=== PATIENT | female | born 1995 | race American Indian/Alaskan Native ===

== ENCOUNTER 2019-12-25 22:38 | Emergency (ER) | payer SELFPAY ==
--- NOTE | 2019-12-25 23:09 | Emergency Department Report ---
ED Abdominal Pain HPI - General Chief Complaint: Abdominal Pain Stated Complaint: LOWER RIGHT ABDOMINAL CRAMPS Time Seen by Provider: 12/25/19 23:03 Source: patient, EMS Mode of arrival: Stretcher Limitations: No Limitations - History of Present Illness Initial Comments: Patient is a 24-year-old female that presents emergency room with complaints of right lower quadrant pain x2 to 3 hours. Patient states she has a history of ovarian cyst. Patient states pain is strong. Patient states the pain is a 10 out of 10. Patient states the pain is worse with movement and palpation. Patient dates the pain is better with rest. Patient states the pain is worse than her last ovarian cyst. Patient denies nausea vomiting diarrhea. Last menstrual period 11/29/2019. Patient states that she is currently in a psychiatric facility on [address]. Patient has a sitter with her. Patient also complains of open wound to her middle back. Patient states she has had there for about 2 weeks. Patient states it became painful about 2 days ago. Patient states she noticed a small amount of purulent discharge when she scratched it. Patient denies fever or chills. Patient denies recent travel. Patient denies recent international travel. Patient denies exposure to the novel coronavirus. Patient denies sick contacts. Patient denies fever and chills. Patient denies cough. Patient denies diarrhea. Patient denies coming in contact with anybody with symptoms of the novel coronavirus. MD Complaint: abdominal pain -: Sudden Location: RLQ Radiation: none Migration to: no migration Severity: severe Severity scale (0 -10): 10 Quality: stabbing Consistency: constant Improves With: rest Worsens With: movement, other Associated Symptoms: denies other symptoms. denies: nausea, vomiting, diarrhea, fever, chills, constipation, dysuria, hematemesis, hematochezia, melena, hematuria, anorexia, syncope - Related Data LMP (females 10-50): 1 month Home Medications Medication Instructions Recorded Confirmed Last Taken Sertraline [Zoloft] mg PO QDAY 12/25/19 12/25/19 Previous Rx's Medication Instructions Recorded Last Taken Type Fluconazole [Diflucan TAB] 150 mg PO ONCE 1 Days #1 tablet 12/26/19 Unknown Rx Sulfamethoxazole/Trimethoprim 1 each PO BID 10 Days #20 tablet 12/26/19 Unknown Rx [Bactrim DS TAB] Allergies Allergy/AdvReac Type Severity Reaction Status Date / Time ibuprofen Allergy Angioedema Verified 12/25/19 23:19 naproxen Allergy Angioedema Verified 12/25/19 23:19 Penicillins Allergy Angioedema Verified 12/25/19 23:19 ED Review of Systems ROS: Stated complaint: LOWER RIGHT ABDOMINAL CRAMPS Other details as noted in HPI Constitutional: denies: chills, fever Eyes: denies: eye pain, eye discharge, vision change ENT: denies: ear pain, throat pain Respiratory: denies: cough, shortness of breath, wheezing Cardiovascular: denies: chest pain, palpitations Endocrine: no symptoms reported Gastrointestinal: abdominal pain. denies: nausea, diarrhea Genitourinary: denies: urgency, dysuria, discharge Musculoskeletal: denies: back pain, joint swelling, arthralgia Skin: denies: rash, lesions Neurological: denies: headache, weakness, paresthesias Psychiatric: denies: anxiety, depression Hematological/Lymphatic: denies: easy bleeding, easy bruising ED Past Medical Hx - Past Medical History Previous Medical History?: Yes Hx Asthma: Yes Additional medical history: Ovarian cysts - Surgical History Past Surgical History?: Yes Additional Surgical History: Drainage of ovarian cyst - Social History Smoking Status: Unknown if ever smoked Substance Use Type: Alcohol, Marijuana - Medications Home Medications: Home Medications Medication Instructions Recorded Confirmed Last Taken Type Sertraline [Zoloft] mg PO QDAY 12/25/19 12/25/19 History Fluconazole [Diflucan TAB] 150 mg PO ONCE 1 Days #1 tablet 12/26/19 Unknown Rx Sulfamethoxazole/Trimethoprim 1 each PO BID 10 Days #20 tablet 12/26/19 Unknown Rx [Bactrim DS TAB] ED Physical Exam - General Limitations: No Limitations General appearance: alert, in no apparent distress - Head Head exam: Present: atraumatic, normocephalic - Eye Eye exam: Present: normal appearance - ENT ENT exam: Present: mucous membranes moist - Neck Neck exam: Present: normal inspection - Respiratory Respiratory exam: Present: normal lung sounds bilaterally. Absent: respiratory distress, wheezes, rales - Cardiovascular Cardiovascular Exam: Present: regular rate, normal rhythm. Absent: systolic murmur, diastolic murmur, rubs, gallop - GI/Abdominal GI/Abdominal exam: Present: soft, tenderness (rlq ttp), normal bowel sounds. Absent: distended, guarding - Rectal Rectal exam: Present: deferred - Extremities Exam Extremities exam: Present: normal inspection - Back Exam Back exam: Present: normal inspection - Neurological Exam Neurological exam: Present: alert, oriented X3 - Psychiatric Psychiatric exam: Present: normal affect, normal mood - Skin Skin exam: Present: warm, dry, intact, normal color. Absent: rash ED Course Vital Signs 12/25/19 12/25/19 12/25/19 22:48 22:57 23:25 Temperature 98.7 F Pulse Rate 95 H Respiratory 18 18 18 Rate Blood Pressure 129/82 [Left] O2 Sat by Pulse 99 99 Oximetry 12/26/19 12/26/19 01:30 02:28 Temperature Pulse Rate 56 L 56 L Respiratory 16 16 Rate Blood Pressure 106/52 108/61 [Left] O2 Sat by Pulse 95 99 Oximetry - Reevaluation(s) Reevaluation #1: Patient states her pain is better. I discussed all results and clinical findings with patient. I discussed plan of care with patient. Patient agrees with plan of care. Patient is stable for discharge. Patient will be discharged back to her psychiatric facility to finish her treatment. Patient given discharge instructions. Patient voiced understanding of discharge instructions. 12/26/19 02:24 ED Medical Decision Making - Lab Data Result diagrams: 12/25/19 23:14 12/25/19 23:14 - Medical Decision Making Patient is a 24-year-old female that presents emergency room with complaints of abdominal pain. Patient's abdominal pain is in the right lower quadrant. Patient on exam found to have right lower quadrant tenderness. Patient warranted a CT scan to rule out an appendicitis. Patient's labs are essentially unremarkable except for a UTI. Patient CT done is negative for acute findings except for ovarian cyst. Patient's clinical findings are consistent with a ovarian cyst as a cause her pain. Patient instructed to take Tylenol. Patient is allergic to ibuprofen. Patient pain was controlled in the ER. Patient left with minimal pain. Patient given antibiotics for UTI. Patient stable for discharge. Patient discharged back to her psych facility to continue her treatment. - Differential Diagnosis abd pain. Appendicitis, ovarian cyst, UTI Critical care attestation.: If time is entered above; I have spent that time in minutes in the direct care of this critically ill patient, excluding procedure time. ED Disposition Clinical Impression: Abdominal pain Qualifiers: Abdominal location: right lower quadrant Qualified Code(s): R10.31 - Right lower quadrant pain Cellulitis Qualifiers: Site of cellulitis: unspecified site Qualified Code(s): L03.90 - Cellulitis, unspecified Ovarian cyst Qualifiers: Laterality: right Qualified Code(s): N83.201 - Unspecified ovarian cyst, right side UTI (urinary tract infection) Qualifiers: Urinary tract infection type: acute cystitis Hematuria presence: with hematuria Qualified Code(s): N30.01 - Acute cystitis with hematuria Disposition: TO HOME OR SELFCARE Is pt being admited?: No Does the pt Need Aspirin: No Condition: Stable Instructions: Ovarian Cyst (ED), Urinary Tract Infection in Women (ED), Cellulitis (ED), Abdominal Pain (ED) Additional Instructions: Patient to follow-up with primary care in 2 to 3 days. Patient to follow-up with [facility] in 2 to 3 days. Patient to rest. Patient to increase water. Patient to take Tylenol as needed for pain. Patient to take meds as directed. Patient to return to the ER if condition worsens, changes or new symptoms arise. Prescriptions: Sulfamethoxazole/Trimethoprim [Bactrim DS TAB] 1 each PO BID 10 Days #20 tablet Fluconazole [Diflucan TAB] 150 mg PO ONCE 1 Days #1 tablet Referrals: PRIMARY CARE [Primary Care Provider] - 3-5 Days Time of Disposition: 02:19
[2019-12-25] MEDS ORDERED: HYDROmorphone 1 MG/1 ML INJ IV ONE (23:11)
[2019-12-25] MEDS ORDERED: ONDANSETRON 4 MG/2 ML INJ IV ONE (23:11)
[2019-12-25 23:25] LABS: Basophils % (Auto) 0.5 % (0.0-1.8); Eosinophils % (Auto) 0.3 % (0.0-4.3); Lymphocytes % (Auto) 20.9 % (13.4-35.0); Mean Corpuscular HGB Conc 36 % (30-34); Mean Corpuscular Volume 97 fl (79-97); Monocytes # (Auto) 0.7 K/mm3 (0.0-0.8); Monocytes % (Auto) 7.2 % (0.0-7.3); Platelet Count 231 K/mm3 (140-440); Red Blood Count 3.94 M/mm3 (3.65-5.03); Red Cell Distribution Width 12.7 % (13.2-15.2)
[2019-12-25 23:34] LABS: Hematocrit 38.4 % (30.3-42.9)
[2019-12-25 23:43] LABS: Alanine Aminotransferase 18 units/L (7-56); Albumin 4.9 g/dL (3.9-5); BUN/Creatinine Ratio 20; Blood Urea Nitrogen 12 mg/dL (7-17); Calcium 9.3 mg/dL (8.4-10.2); Hemolysis Index 3
[2019-12-25 23:44] LABS: Bilirubin,Direct < 0.2 mg/dL (0-0.2)
[2019-12-26 00:16] LABS: Bacteria,Urine 1+ /HPF (Negative); Bilirubin,Urine NEG (Negative); Blood,Urine NEG (Negative); Calcium Oxalate Crystals,Urine 1+; Color,Urine Yellow (Yellow); Mucus,Urine 3+ /HPF; Protein,Urine <15 mg/dL mg/dL (Negative)
--- NOTE | 2019-12-26 01:25 | Cat Scan Report ---
CT abdomen pelvis w con INDICATION / CLINICAL INFORMATION: Pt complains of R.L.Q. abdominal pain, otherwise asymptomatic. TECHNIQUE: Axial CT imaging of abdomen and pelvis was obtained with IV contrast. Coronal and sagittal reformatte d imaging obtained and reviewed. All CT scans at this location are performed using CT dose reduction for ALARA by means of automated exposure control. COMPARISON: None available. FINDINGS: CT abdomen with contrast demonstrates a 3 cm hypodense mass within the dome of the liver. Overall girogio earance is nonspecific but I suspect will represent a hemangioma based on some mural nodularity. The remainder the liver is unremarkable. Spleen, pancreas, kidneys, adrenal glands, and gallbladder are g rossly unremarkable. No biliary dilatation. CT pelvis with contrast demonstrates normal appearance of the retrocecal appendix. There is no eviden ce of appendicitis. There is a cyst in the left ovary measuring 2.8 cm. No associated free fluid. GI tract is unremarkable. Visualized lung bases are clear. No acute abnormality noted. IMPRESSION: 1. Incidental finding of a 2.8 cm left ovarian cyst. No associated free fluid. 2. Incidental finding of 3 cm mass within the liver. Although not definitive, I suspect this mass is a hemangioma. 3. No acute finding within the abdomen or pelvis. Signer Name: Zeinab Marie MD Signed: 12/26/2019 1:21 AM Workstation Name: [id number]
[2019-12-26 04:44] VITALS: BP 105/50
== END 2019-12-26 04:41 | disposition home or self-care (01) ==
LOC: ED 22:38
DX: N39.0 Urinary tract infection, site not specified (principal); L03.90 Cellulitis, unspecified; N83.201 Unspecified ovarian cyst, right side; R10.31 Right lower quadrant pain; J45.909 Unspecified asthma, uncomplicated; F12.90 Cannabis use, unspecified, uncomplicated; Z88.0 Allergy status to penicillin; Z88.6 Allergy status to analgesic agent; Z88.8 Allergy status to other drugs, medicaments and biological substances; Z79.899 Other long term (current) drug therapy; Z98.890 Other specified postprocedural states
CPT/HCPCS: 36415; 74177; 80048; 80076; 81001; 84703; 85025; 96374; 96375; 99285; J1170; J2405; Q9967